=== PATIENT | male | born 1990 | race Caucasian/White ===

== ENCOUNTER 2020-08-25 09:42 | Emergency (ER) | payer BC ==
[~2020-08-25] VITALS: Ht 172.7 cm; Wt 79.4 kg
[2020-08-25] MEDS ORDERED: ZPAK PO (11:03)
[2020-08-25] MEDS ORDERED: PREDNISONE 20 M20 M1 PO (11:03)
[2020-08-25 11:18] VITALS: BP 126/72
== END 2020-08-25 11:19 | disposition home or self-care (01) ==
LOC: M.ERS 09:42
DX: U07.1 COVID-19 (principal)

== ENCOUNTER 2021-05-22 10:36 | Emergency (ER) | payer BC ==
[~2021-05-22] VITALS: Ht 172.7 cm; Wt 77.1 kg
[~2021-05-22 10:36] MED LIST: PREDNISONE 20 M20 M1 PO; ZPAK PO
[2021-05-22] MEDS ORDERED: AMOXICILLIN 50500 MG PO (11:43)
[2021-05-22] MEDS ORDERED: MEDROLDOSEPACK PO (11:43)
[2021-05-22] MEDS ORDERED: AFRIN15 ML NASAL (11:43)
[2021-05-22 12:21] VITALS: BP 124/68
== END 2021-05-22 12:22 | disposition home or self-care (01) ==
LOC: M.ERS 10:36
DX: J01.90 Acute sinusitis, unspecified (principal); Z20.822 Contact with and (suspected) exposure to COVID-19